=== PATIENT | female | born 1980 | race Two or more races ===

== ENCOUNTER 2018-12-19 07:00 | Day surgery (SDC) | payer BC ==
[~2018-12-19 07:00] MED LIST: CITALOPRAM HBR10 MG PO; NABUMETONE500 MG PO; TOPIRAMATE PO; [UNRECOGNIZED DRUG - OTHER] PO
[2018-12-19] MEDS ORDERED: NEURONTIN300 MG PO (11:53)
[2018-12-19] MEDS ORDERED: PERCOCET 5-3251 EACH PO (11:53)
== END 2018-12-19 14:55 | disposition home or self-care (01) ==
LOC: CIR.AMB 07:00
DX: D12.8 Benign neoplasm of rectum (principal)

== ENCOUNTER 2019-12-16 07:30 | Day surgery (SDC) | payer BC ==
[~2019-12-16 07:30] MED LIST changes: +NEURONTIN300 MG PO; +PERCOCET 5-3251 EACH PO
== END 2019-12-16 14:30 | disposition home or self-care (01) ==
LOC: AMB-ENDOS 07:30 → ADM 14:15 → AMB-ENDOS 14:30
PROVIDERS: ATTEND Surgery
DX: K62.1 Rectal polyp (principal)